=== PATIENT | male | born 2000 | race Caucasian/White ===

== ENCOUNTER 2023-11-05 07:19 | Emergency (ER) | payer OTHER ==
[~2023-11-05] VITALS: Ht 177.8 cm; Wt 91.4 kg
[2023-11-05] MEDS ORDERED: IBUP200C28 PO (07:28)
[2023-11-05] MEDS: KETOROLAC 30 MG/ML 1ML VIAL IM ONE (08:46)
[2023-11-05] MEDS: BENZOCAINE 20% GEL 9GM TUBE (ANBESOL MAX STRENGTH) TOP ONE (08:47)
[2023-11-05 09:22] VITALS: BP 136/98; TEMP 97.1; O2SAT 98
[2023-11-05] MEDS ORDERED: AMOX875T2 PO (18:14)
[2023-11-05] MEDS ORDERED: PERC5TAB12 PO (18:14)
== END 2023-11-05 09:27 | disposition home or self-care (01) ==
LOC: M ED 07:19
DX: K08.89 Other specified disorders of teeth and supporting structures (principal); G89.18 Other acute postprocedural pain; Z79.2 Long term (current) use of antibiotics; Z79.1 Long term (current) use of non-steroidal anti-inflammatories (NSAID); Z79.899 Other long term (current) drug therapy

== ENCOUNTER 2023-11-05 15:49 | Emergency (ER) | payer OTHER ==
[~2023-11-05] VITALS: Ht 177.8 cm; Wt 91.4 kg
[~2023-11-05 15:49] MED LIST: IBUP200C28 PO
[2023-11-05] MEDS: ARTICAINE HCL/EPINEPHRINE 4%-1:200,000 1.7ML INJ (SEPTOCAINE) SM ONE (17:40)
[2023-11-05] MEDS: BENZOCAINE 20% GEL 9GM TUBE (ANBESOL MAX STRENGTH) TOP ONE (17:47)
[2023-11-05] MEDS ORDERED: AMOX875T2 PO (18:14)
[2023-11-05] MEDS ORDERED: PERC5TAB12 PO (18:14)
[2023-11-05] MEDS: AUGMENTIN 875 MG TAB PO ONE (18:33)
[2023-11-05] MEDS: PERCOCET 5MG/325MG TAB PO ONE (18:34)
[2023-11-05 18:40] VITALS: BP 158/100; TEMP 98.1; O2SAT 98
== END 2023-11-05 18:42 | disposition home or self-care (01) ==
LOC: M ED 15:49
DX: K04.7 Periapical abscess without sinus (principal); Z79.2 Long term (current) use of antibiotics; Z79.1 Long term (current) use of non-steroidal anti-inflammatories (NSAID)
CPT/HCPCS: 64400; 96374; 99283; J1885